=== PATIENT | female | born 1990 | race Caucasian/White ===

== ENCOUNTER 2017-09-07 22:00 | Emergency (ER) | payer MEDICAID ==
[~2017-09-07 22:00] MED LIST: PRI20 PO
[2017-09-07 23:14] VITALS: BP 96/51
== END 2017-09-07 23:14 | disposition home or self-care (01) ==
LOC: ED 22:00
DX: N61.0 Mastitis without abscess (principal)

== ENCOUNTER 2017-12-07 15:21 | Emergency (ER) | payer MEDICAID ==
[~2017-12-07] VITALS: Ht 162.6 cm; Wt 79.8 kg
[2017-12-07 15:31] VITALS: Ht 162.6 cm; Wt 79.8 kg
[2017-12-07 16:36] VITALS: BP 122/67
== END 2017-12-07 16:36 | disposition home or self-care (01) ==
LOC: ED 15:21
DX: N30.91 Cystitis, unspecified with hematuria (principal)

== ENCOUNTER 2018-09-08 19:44 | Emergency (ER) | payer MEDICAID ==
[~2018-09-08] VITALS: Ht 162.6 cm; Wt 85.3 kg
[2018-09-08 20:11] VITALS: Ht 162.6 cm; Wt 85.3 kg
[2018-09-08 22:58] VITALS: BP 98/63
== END 2018-09-08 23:07 | disposition home or self-care (01) ==
LOC: ED 19:44
DX: H10.9 Unspecified conjunctivitis (principal); Z98.890 Other specified postprocedural states

== ENCOUNTER 2019-01-03 09:53 | Inpatient (IN) | payer MEDICAID ==
[~2019-01-03] VITALS: Ht 162.6 cm; Wt 78.9 kg
[2019-01-03 10:49] VITALS: Ht 162.6 cm; Wt 78.9 kg
--- NOTE | 2019-01-03 11:00 | NUR ---
er at bedside for evaluations/assessments.omar garvey.awaits reevaluations.c/o rt low abd area pains x 2 days with nausea.
--- NOTE | 2019-01-03 11:23 | NUR ---
IV ACCESS STARTED ASEPTICALLY WITH BLOOD DRAWN/SENT TO [facility],IVF STARTED NS BOLUS,IV MEDS GIVEN PER ER MD ORDERS IV SLOW.PT TOLERATED PROCEDURES WITH NO INCIdents.awaits test results,reevaluations.omar garvey.
[2019-01-03 11:39] LABS: BASOPHIL % 0.1 % (0-2); PLATELET COUNT 170 x10^3mcL (130-400); RED CELL DISTRIBUTION WIDTH 14.2 % (11.5-14.5)
[2019-01-03 11:48] LABS: CALCIUM 8.6 mg/dL (8.5-10.1); CHLORIDE SERUM 105 mmol/L (98-107); CREATININE SERUM 0.7 mg/dL (0.6-1.0); GFR1 > 60 mL/min; GLUCOSE SERUM 90 mg/dL (74-106); POTASSIUM SERUM 3.6 mmol/L (3.5-5.1); SODIUM SERUM 141 mmol/L (136-145)
[2019-01-03 11:53] LABS: ALBUMIN 3.8 g/dL (3.4-5.0); ALKALINE PHOSPHATASE 50 U/L (46-116); ALT/SGPT 30 U/L (14-59); AST/SGOT 18 U/L (15-37); BILIRUBIN TOTAL 0.6 mg/dL (0.20-1.00); LIPASE 128 IU/L (73-393); TOTAL PROTEIN, SERUM 7.5 g/dL (6.4-8.2)
--- NOTE | 2019-01-03 11:56 | NUR ---
PT AMBULATED TO/FROM BATHROOM FOR URINE SPECIMEN,urine is dipped,urine hcg done.results made know to er .pt tolerated [procedures with no incidents.awaits reevaluations.omar garvey.
--- NOTE | 2019-01-03 12:39 | NUR ---
TO CT TEST AREA VIA CYNTHIAERNERI NAD.AWAITS TEST RESULTS,REEVALUATIONS.
--- NOTE | 2019-01-03 14:10 | NUR ---
TO XRAY TEST AREA VIA W/C,JEFFRY HE.AWAITS TEST RESULTS,REEVALUATIONS.
[2019-01-03 14:35] LABS: CHOLESTEROL/HDL RATIO 2.3; MAGNESIUM 1.7 mg/dL (1.8-2.4); PHOSPHOROUS 2.6 mg/dL (2.5-4.9)
[2019-01-03 14:40] LABS: microscopic required? NO
--- NOTE | 2019-01-03 14:40 | NUR ---
md consult at bedside for evaluations/assessments.omar garvey.md consult states to hold 2nd dose of morphine sulfate for now,vs as shown.awaits reevaluations.
[2019-01-03 14:54] LABS: urine erythrocyte NEGATIVE (NEGATIVE)
--- NOTE | 2019-01-03 15:37 | NUR ---
ATTEMPTED TO GIVE FLOOR REPORT LARA RN ASSIGNED RN CURRENTLY GIVING OUT MEDS.TO CALl back in @ 5--10 minutes.merchandising assistantcorporate communications intern made aware.
--- NOTE | 2019-01-03 15:47 | NUR ---
pt endorsed to/accepted by jm blanco.awaits transport services,reevaluations.
--- NOTE | 2019-01-03 16:11 | NUR ---
CONSULT/ AT BEDSIDE FOR evaluations/assessments.omar garvey.awaits reevaluations.
[2019-01-03 17:46] VITALS: BP 101/48
--- NOTE | 2019-01-03 19:15 | NUR ---
RECIEVED REPORT FROM RN. NURSING UPDATES. RESUMED CARE OF PT. PT CC LOWER ABD PAIN. NEURO WNL. CARDIAC WNL. CIRCULATION WNL. RESP WNL. ABD SOFT AND FLAT. TENDER TO PALPATION. URINARY WNL. MUSCUOL WNL. SKIN INTACT. PT C/O PAIN. IV R AC DRESSING C/D/I NO S/S OF INFILTRATION.
[2019-01-03 21:09] VITALS: BP 104/55
--- NOTE | 2019-01-03 22:10 | NUR ---
PT C/O PAIN 04/15. ADMIN PRN *(SEE MAR)* TORADOL FOR PAIN MANAGEMENT. WILL REASESS.
--- NOTE | 2019-01-03 22:53 | NUR ---
REASSESSMENT OF PAIN. PT STATED PAIN 11/16. STATED MEDICATION TOOK THE EDGE OFF.
--- NOTE | 2019-01-04 00:57 | NUR ---
PT RESTING CALMLY IN BED. BED IN LOWEST POSITION, CALL MARTIN WITHIN REACH. NO ACUTE CHANGES.
--- NOTE | 2019-01-04 02:06 | NUR ---
PT RESTING COMFORTABLY IN BED. NO ACUTE CHANGES. CALL MARTIN WITHIN REACH BED IN LOWEST POSITION.
[2019-01-04 03:58] VITALS: BP 93/51
--- NOTE | 2019-01-04 04:54 | NUR ---
PT RESTING CALMLY IN BED. NO ACUTE CHANGES. CALL MARTIN WITHIN REACH BED IN LOWEST POSITION.
--- NOTE | 2019-01-04 06:10 | NUR ---
WILL ENDORSE. PT RESTING CALMLY IN BED. NO ACUTE CHANGES. PT CC LOWER ABD PAIN. NEURO WNL. CARDIAC WNL. CIRCULATION WNL. RESP WNL. ABD SOFT AND FLAT. TENDER TO PALPATION. URINARY WNL. MUSCUOL WNL. SKIN INTACT. PT C/O PAIN. IV R AC DRESSING C/D/I NO S/S OF INFILTRATION. PAIN MED TORADOL ADMIN [id number].
[2019-01-04 06:58] LABS: CALCIUM 8.1 mg/dL (8.5-10.1); CARBON DIOXIDE 23.9 mmol/L (21-32); CHLORIDE SERUM 105 mmol/L (98-107); CREATININE SERUM 0.7 mg/dL (0.6-1.0); GFR1 > 60 mL/min; GLUCOSE SERUM 60 mg/dL (74-106); MAGNESIUM 1.8 mg/dL (1.8-2.4); PHOSPHOROUS 3.8 mg/dL (2.5-4.9); POTASSIUM SERUM 3.8 mmol/L (3.5-5.1); SODIUM SERUM 141 mmol/L (136-145)
[2019-01-04 07:21] LABS: BASOPHIL % 0.4 % (0-2); PLATELET COUNT 169 x10^3mcL (130-400); RED CELL DISTRIBUTION WIDTH 14.5 % (11.5-14.5)
--- NOTE | 2019-01-04 07:38 | NUR ---
RECEIVED IN NO DISTRESS. SLEEPING BUT AROUSABLE. NO RESP. DISTRESS NOTED. NO C/O PAIN OR DISCOMFORT. VS WNL. CALL LIGHT WITHIN REACH. WILL CONTINUE WITH PLAN OF CARE.
--- NOTE | 2019-01-04 09:00 | NUR ---
C/O NAUSEA BUT NO VOMITING. MEDICATED WITH ZOFRAN IVP.
[2019-01-04 10:01] VITALS: BP 90/46
--- NOTE | 2019-01-04 14:58 | NUR ---
PT ATE LUNCH, KENNEDY. FAIRLY. NO N/V AT THIS TIME. C/O LOWER ABD. PAIN. MEDICATED WITH TORADOL PER ORDER.
[2019-01-04] MEDS ORDERED: MOT800 PO (17:15)
[2019-01-04 17:46] VITALS: BP 90/46
--- NOTE | 2019-01-04 18:45 | NUR ---
PT DC'D HOME IN NO DISTRESS, AWAKE, ALERT AND ORIENTED. VS STABLE. NO C/O PAIN OR DISCOMFORT. TOLERATED WELL WITH FULL LIQ. DIET WITH NO C/O N/V. HL REMOVED AND SITE CLEAR. DC INSTRUCTIONS REVIEWED WITH PT AND RX GIVEN. PERSONAL BELONGINGS TAKEN HOME.
== END 2019-01-04 18:46 | disposition home or self-care (01) | DRG 531 ==
LOC: ED 09:53 → MU 14:04
PROVIDERS: Emergency Medicine; ADMIT General Practice
DX: N73.9 Female pelvic inflammatory disease, unspecified (principal); E83.42 Hypomagnesemia; K56.7 Ileus, unspecified; E83.51 Hypocalcemia; N83.202 Unspecified ovarian cyst, left side; Z68.28 Body mass index [BMI] 28.0-28.9, adult
CPT/HCPCS: J0696; J1885; J2270; J2405; J2543; J7030; Q0092; Q9967

== ENCOUNTER 2019-04-24 09:20 | Emergency (ER) | payer MEDICAID ==
[~2019-04-24] VITALS: Ht 162.6 cm; Wt 80.3 kg
[~2019-04-24 09:20] MED LIST changes: +MOT800 PO
[2019-04-24 09:34] VITALS: Ht 162.6 cm; Wt 80.3 kg
[2019-04-24 11:32] LABS: BASOPHIL % 0.2 % (0-2); PLATELET COUNT 172 x10^3mcL (130-400); RED CELL DISTRIBUTION WIDTH 13.8 % (11.5-14.5)
[2019-04-24 12:00] LABS: CALCIUM 8.8 mg/dL (8.5-10.1); CARBON DIOXIDE 24.5 mmol/L (21-32); CHLORIDE SERUM 105 mmol/L (98-107); CREATININE SERUM 0.6 mg/dL (0.6-1.0); GFR1 > 60 mL/min; GLUCOSE SERUM 78 mg/dL (74-106); SODIUM SERUM 139 mmol/L (136-145)
[2019-04-24 12:04] LABS: ALBUMIN 3.8 g/dL (3.4-5.0); ALKALINE PHOSPHATASE 52 U/L (46-116); ALT/SGPT 20 U/L (14-59); AST/SGOT 8 U/L (15-37); BILIRUBIN TOTAL 0.42 mg/dL (0.20-1.00); TOTAL PROTEIN, SERUM 7.3 g/dL (6.4-8.2)
[2019-04-24 13:08] VITALS: BP 106/70
== END 2019-04-24 13:08 | disposition home or self-care (01) ==
LOC: ED 09:20
PROVIDERS: Specialist
DX: N83.202 Unspecified ovarian cyst, left side (principal); Z98.890 Other specified postprocedural states
CPT/HCPCS: 36415; J1885

== ENCOUNTER 2019-06-15 22:54 | Emergency (ER) | payer MEDICAID ==
[~2019-06-15] VITALS: Ht 162.6 cm; Wt 81.6 kg
[2019-06-15 23:04] VITALS: Ht 162.6 cm; Wt 81.6 kg
[2019-06-16 02:33] VITALS: BP 106/54
== END 2019-06-16 02:33 | disposition home or self-care (01) ==
LOC: ED 22:54
DX: N34.2 Other urethritis (principal); Z98.890 Other specified postprocedural states
CPT/HCPCS: 87491; 87591; J0696

== ENCOUNTER 2019-08-01 02:19 | Emergency (ER) | payer MEDICAID ==
[~2019-08-01] VITALS: Ht 162.6 cm; Wt 81.2 kg
[2019-08-01 02:24] VITALS: Ht 162.6 cm; Wt 81.2 kg
[2019-08-01 03:41] LABS: BASOPHIL % 0.4 % (0-2); PLATELET COUNT 164 x10^3mcL (130-400); RED CELL DISTRIBUTION WIDTH 13.2 % (11.5-14.5)
[2019-08-01 03:51] LABS: CALCIUM 8.2 mg/dL (8.5-10.1); CARBON DIOXIDE 27.4 mmol/L (21-32); CHLORIDE SERUM 108 mmol/L (98-107); CREATININE SERUM 0.7 mg/dL (0.6-1.0); GFR1 > 60 mL/min; GLUCOSE SERUM 91 mg/dL (74-106); POTASSIUM SERUM 3.7 mmol/L (3.5-5.1); SODIUM SERUM 142 mmol/L (136-145)
[2019-08-01 03:56] LABS: ALBUMIN 3.6 g/dL (3.4-5.0); ALKALINE PHOSPHATASE 50 U/L (46-116); ALT/SGPT 20 U/L (14-59); AST/SGOT 11 U/L (15-37); BILIRUBIN TOTAL 0.29 mg/dL (0.20-1.00); TOTAL PROTEIN, SERUM 7.3 g/dL (6.4-8.2)
[2019-08-01 05:47] VITALS: BP 115/64
== END 2019-08-01 05:47 | disposition home or self-care (01) ==
LOC: ED 02:19
PROVIDERS: Emergency Medicine
DX: R10.2 Pelvic and perineal pain (principal); R39.15 Urgency of urination; R35.0 Frequency of micturition
CPT/HCPCS: 36415; 87491; 87591; Q0092

== ENCOUNTER 2019-12-07 14:56 | Emergency (ER) | payer MEDICAID ==
[~2019-12-07] VITALS: Ht 162.6 cm; Wt 77.1 kg
[2019-12-07 15:07] VITALS: Ht 162.6 cm; Wt 77.1 kg
[2019-12-07 15:46] LABS: BASOPHIL % 0.4 % (0-2); PLATELET COUNT 199 x10^3mcL (130-400); RED CELL DISTRIBUTION WIDTH 13.6 % (11.5-14.5)
[2019-12-07 16:12] LABS: CALCIUM 8.7 mg/dL (8.5-10.1); CHLORIDE SERUM 106 mmol/L (98-107); CREATININE SERUM 0.6 mg/dL (0.6-1.0); GFR1 > 60 mL/min; GLUCOSE SERUM 82 mg/dL (74-106); POTASSIUM SERUM 3.7 mmol/L (3.5-5.1); SODIUM SERUM 141 mmol/L (136-145)
[2019-12-07 16:16] LABS: ALBUMIN 4.1 g/dL (3.4-5.0); ALKALINE PHOSPHATASE 52 U/L (46-116); ALT/SGPT 20 U/L (14-59); AST/SGOT 13 U/L (15-37); BILIRUBIN TOTAL 0.48 mg/dL (0.20-1.00); LIPASE 112 IU/L (73-393); TOTAL PROTEIN, SERUM 7.9 g/dL (6.4-8.2)
[2019-12-07 18:22] VITALS: BP 101/61
== END 2019-12-07 18:22 | disposition home or self-care (01) ==
LOC: ED 14:56
PROVIDERS: Emergency Medicine
DX: R10.9 Unspecified abdominal pain (principal); Z98.890 Other specified postprocedural states
CPT/HCPCS: 36415

== ENCOUNTER 2020-05-18 02:18 | Emergency (ER) | payer MEDICAID ==
[~2020-05-18] VITALS: Ht 162.6 cm; Wt 83.0 kg
[2020-05-18 02:31] VITALS: Ht 162.6 cm; Wt 83.0 kg
[2020-05-18 03:08] LABS: CALCIUM 8.7 mg/dL (8.5-10.1); CARBON DIOXIDE 30.1 mmol/L (21-32); CHLORIDE SERUM 105 mmol/L (98-107); CREATININE SERUM 0.8 mg/dL (0.6-1.0); GFR1 > 60 mL/min; GLUCOSE SERUM 107 mg/dL (74-106); POTASSIUM SERUM 3.8 mmol/L (3.5-5.1); SODIUM SERUM 141 mmol/L (136-145)
[2020-05-18 03:11] LABS: BASOPHIL % 0.7 % (0-2); PLATELET COUNT 170 x10^3mcL (130-400); RED CELL DISTRIBUTION WIDTH 12.6 % (11.5-14.5)
[2020-05-18 03:14] LABS: ALKALINE PHOSPHATASE 63 U/L (46-116); ALT/SGPT 28 U/L (14-59); AST/SGOT 18 U/L (15-37); BILIRUBIN TOTAL 0.3 mg/dL (0.20-1.00); TOTAL PROTEIN, SERUM 7.6 g/dL (6.4-8.2)
[2020-05-18 06:46] VITALS: BP 100/60
== END 2020-05-18 06:46 | disposition home or self-care (01) ==
LOC: ED 02:18
DX: R10.813 Right lower quadrant abdominal tenderness (principal); R11.0 Nausea; R63.0 Anorexia; Z90.49 Acquired absence of other specified parts of digestive tract; Z98.890 Other specified postprocedural states
CPT/HCPCS: J1885; J2405; J7030